=== PATIENT | male | born 1950 | race Caucasian/White ===

== ENCOUNTER 2016-06-06 16:06 | Inpatient (IN) | payer MEDICARE, MEDICAID ==
[~2016-06-06] VITALS: Ht 185.4 cm; Wt 112.7 kg
[~2016-06-06 16:06] MED LIST: AMLO5TAB2 PO; AMOX1TAB61 PO; ARIP10TA13 PO; ASPI-650 PO; CEFD300C2 PO; CELE200C PO; CIPR500T3 PO; DIABETIC MED PER MD; DIVA250T14 PO; DIVA250T4 PO; DOCU-30 PO; DOXY100T PO; FLUT1DIS3 INH; GEMF600T3 PO; LACT1CAP20 PO; LINA5TAB PO; LITH300C PO; LORA0.5T PO; LOSA50TA6 PO; NITR0.4T SL; NITR0.4T8 SL; OMEP-110 PO; ONDA-39 PO; OXYC-302 PO; OXYC1TAB7 PO; POTA99TA3 PO; SULF1TAB24 PO
[2016-06-06] MEDS: HYDROmorphone 1 MG/ML, 1ML IV ONE ×2 (19:30→19:40)
[2016-06-06] MEDS ORDERED: ONDANSETRON 2MG/ML, 2ML IVPush ONE (19:30)
[2016-06-06] MEDS ORDERED: SODIUM CHLORIDE FLUSH 10ML SYR IVF ONE (19:30)
[2016-06-06] MEDS ORDERED: ONDANSETRON 2MG/ML, 2ML ONE ×2 (19:37→23:16)
[2016-06-06] MEDS ORDERED: HYDROmorphone 1 MG/ML, 1ML ONE (19:37)
[2016-06-06 19:38] LABS: BLOOD UREA NITROGEN 28 mg/dL (7-18); HEMOGLOBIN 12.7 g/dL (13.7-18.0)
[2016-06-06] MEDS ORDERED: ACETAMINOPHEN 325 MG TABLET PO PRN ×2 (20:30→23:00)
[2016-06-06] MEDS ORDERED: LABETALOL 5MG/ML, 20ML IV PRN ×2 (20:30→23:00)
[2016-06-06] MEDS ORDERED: ONDANSETRON ODT 4 MG PO PRN (20:30)
[2016-06-06] MEDS ORDERED: DOCUSATE 100 MG CAPSULE PO PRN (20:30)
[2016-06-06] MEDS: HEPARIN 5,000 UNITS/ML, 1ML SQ SCH (20:30)
[2016-06-06] MEDS: LITHIUM CARBONATE 300 MG CAPSULE PO SCH (21:00)
[2016-06-06] MEDS: (Fluticasone/Salmeterol** (Advair 250-50 Diskus**) 1 PUFF) INH SCH (21:00)
[2016-06-06] MEDS: INSULIN ASPART 100 UNITS/ML, PEN SQ-INSULIN SCH (21:00)
[2016-06-06] MEDS: LACTULOSE 10 GM/15 ML UDC PO SCH (21:00)
[2016-06-06] MEDS: SODIUM CHLORIDE 0.9% 1,000 ML IV SCH (21:36)
[2016-06-06 21:38] VITALS: BP 146/86
[2016-06-06] MEDS: D5%-0.45% NACL 1,000 ML IV SCH (22:25)
[2016-06-06] MEDS ORDERED: ASPIRIN 325 MG TABLET PO ONE (22:30)
[2016-06-06] MEDS: FAMOTIDINE 20 MG/2 ML IV SCH (22:35)
[2016-06-06] MEDS ORDERED: EPHEDRINE 50 MG/ML, 1ML IVPush PRN (23:00)
[2016-06-06] MEDS ORDERED: ALBUTEROL SULFATE 2.5 MG/3 ML NPPB PRN (23:00)
[2016-06-06] MEDS ORDERED: PROMETHAZINE 25 MG/ML, 1ML IV PRN (23:00)
[2016-06-06] MEDS ORDERED: OXYcodone 5 MG/5 ML ORAL.SOL UDC PO PRN (23:00)
[2016-06-06] MEDS ORDERED: hydrALAzine 20 MG/ML, 1ML IV PRN (23:00)
[2016-06-06] MEDS ORDERED: ONDANSETRON 2MG/ML, 2ML IVPush PRN (23:00)
[2016-06-06] MEDS ORDERED: METOPROLOL 1 MG/ML, 5ML IV PRN (23:00)
[2016-06-06] MEDS ORDERED: CEFAZOLIN 1,000 MG ONE (23:16)
[2016-06-06] MEDS ORDERED: PROPOFOL 10 MG/ML, 20ML ONE (23:16)
[2016-06-06] MEDS ORDERED: GLYCOPYRROLATE 0.2MG/1ML ONE (23:16)
[2016-06-06] MEDS ORDERED: NEOSTIGMINE 1 MG/ML, 10ML ONE (23:16)
[2016-06-06] MEDS ORDERED: ROCURONIUM 10 MG/ML ONE (23:16)
[2016-06-06] MEDS ORDERED: FENTANYL PF 100 MCG/2ML ONE (23:38)
[2016-06-07] MEDS ORDERED: FENTANYL PF 100 MCG/2ML ONE (00:17)
[2016-06-07] MEDS ORDERED: OXYcodone 5 MG/5 ML ORAL.SOL UDC ONE (00:17)
[2016-06-07] MEDS: FENTANYL PF 100 MCG/2ML IV PRN ×2 (00:21→00:37)
[2016-06-07] MEDS ORDERED: HYDROmorphone 2 MG/ML, 1ML ONE (00:27)
[2016-06-07] MEDS: HYDROmorphone 1 MG/ML, 1ML IV PRN ×5 (00:29→06:44)
[2016-06-07] MEDS: SODIUM CHLORIDE 0.9% 1,000 ML IV SCH (01:57)
[2016-06-07 02:00] VITALS: BP 104/58
[2016-06-07] MEDS: D5%-0.45% NACL 1,000 ML IV SCH ×4 (02:31→21:10)
[2016-06-07] MEDS: ONDANSETRON 2MG/ML, 2ML IVPush PRN ×3 (03:17→14:48)
[2016-06-07] MEDS: HEPARIN 5,000 UNITS/ML, 1ML SQ SCH ×3 (05:33→21:16)
[2016-06-07] MEDS: NICOTINE 14MG/24 HR PATCH.TD24 TD SCH ×2 (05:33→21:11)
[2016-06-07 06:21] LABS: HEMOGLOBIN 11.6 g/dL (13.7-18.0)
[2016-06-07] MEDS: INSULIN ASPART 100 UNITS/ML, PEN SQ-INSULIN SCH ×4 (06:38→21:00)
[2016-06-07 06:39] LABS: ASPARTATE AMINO TRANSFERASE 10 U/L (15-37); BLOOD UREA NITROGEN 23 mg/dL (7-18)
[2016-06-07 07:50] VITALS: BP 99/69
[2016-06-07] MEDS: FAMOTIDINE 20 MG/2 ML IV SCH ×2 (08:57→21:14)
[2016-06-07] MEDS: (Fluticasone/Salmeterol** (Advair 250-50 Diskus**) 1 PUFF) INH SCH ×2 (09:00→21:00)
[2016-06-07] MEDS: LACTULOSE 10 GM/15 ML UDC PO SCH ×3 (10:17→21:33)
[2016-06-07] MEDS: ASPIRIN 325 MG TABLET EC PO SCH (10:18)
[2016-06-07] MEDS: SENNA/DOCUSATE TABLET PO SCH (10:18)
[2016-06-07] MEDS: DIVALPROEX 250 MG TABLET.DR PO SCH (10:18)
[2016-06-07] MEDS: GEMFIBROZIL 600 MG TABLET PO SCH (10:18)
[2016-06-07] MEDS: LITHIUM CARBONATE 300 MG CAPSULE PO SCH ×2 (10:19→21:16)
[2016-06-07] MEDS: OXYcodone IR 5MG TABLET PO PRN ×4 (10:19→23:44)
[2016-06-07] MEDS: LOSARTAN 50MG TABLET PO SCH (10:22)
[2016-06-07 13:17] VITALS: BP 121/79
[2016-06-07 19:36] VITALS: BP 118/67
[2016-06-08] MEDS: D5%-0.45% NACL 1,000 ML IV SCH ×2 (03:01→10:36)
[2016-06-08] MEDS: HEPARIN 5,000 UNITS/ML, 1ML SQ SCH ×3 (03:49→21:20)
[2016-06-08] MEDS: OXYcodone IR 5MG TABLET PO PRN ×4 (03:50→19:43)
[2016-06-08 04:10] VITALS: BP 124/75
[2016-06-08 05:03] LABS: HEMOGLOBIN 10.8 g/dL (13.7-18.0)
[2016-06-08] MEDS: INSULIN ASPART 100 UNITS/ML, PEN SQ-INSULIN SCH ×4 (06:27→21:00)
[2016-06-08] MEDS: HYDROmorphone 1 MG/ML, 1ML IV PRN (06:35)
[2016-06-08 07:51] VITALS: BP 111/61
[2016-06-08] MEDS: (Fluticasone/Salmeterol** (Advair 250-50 Diskus**) 1 PUFF) INH SCH ×2 (08:59→21:00)
[2016-06-08] MEDS: DIVALPROEX 250 MG TABLET.DR PO SCH (09:00)
[2016-06-08] MEDS: FAMOTIDINE 20 MG/2 ML IV SCH ×2 (09:00→21:20)
[2016-06-08] MEDS: ASPIRIN 325 MG TABLET EC PO SCH (09:00)
[2016-06-08] MEDS: SENNA/DOCUSATE TABLET PO SCH (09:01)
[2016-06-08] MEDS: LITHIUM CARBONATE 300 MG CAPSULE PO SCH ×2 (09:01→21:20)
[2016-06-08] MEDS: LACTULOSE 10 GM/15 ML UDC PO SCH ×2 (09:01→21:20)
[2016-06-08] MEDS: LOSARTAN 50MG TABLET PO SCH (09:01)
[2016-06-08] MEDS: GEMFIBROZIL 600 MG TABLET PO SCH (09:02)
[2016-06-08 14:51] VITALS: BP 124/77
[2016-06-08 19:46] VITALS: BP 125/80
[2016-06-08 19:48] VITALS: BP 97/66
[2016-06-08] MEDS: NICOTINE 14MG/24 HR PATCH.TD24 TD SCH (21:20)
[2016-06-09 02:38] VITALS: BP 123/62
[2016-06-09] MEDS: OXYcodone IR 5MG TABLET PO PRN ×2 (04:54→20:27)
[2016-06-09] MEDS: HEPARIN 5,000 UNITS/ML, 1ML SQ SCH ×3 (04:54→20:26)
[2016-06-09] MEDS: INSULIN ASPART 100 UNITS/ML, PEN SQ-INSULIN SCH ×4 (07:00→20:27)
[2016-06-09 07:10] VITALS: BP 135/67
[2016-06-09] MEDS: GEMFIBROZIL 600 MG TABLET PO SCH (07:49)
[2016-06-09] MEDS: SENNA/DOCUSATE TABLET PO SCH (07:49)
[2016-06-09] MEDS: LITHIUM CARBONATE 300 MG CAPSULE PO SCH ×2 (07:49→20:27)
[2016-06-09] MEDS: LOSARTAN 50MG TABLET PO SCH (07:49)
[2016-06-09] MEDS: DIVALPROEX 250 MG TABLET.DR PO SCH (07:49)
[2016-06-09] MEDS: ASPIRIN 325 MG TABLET EC PO SCH (07:49)
[2016-06-09] MEDS: (Fluticasone/Salmeterol** (Advair 250-50 Diskus**) 1 PUFF) INH SCH ×2 (07:50→20:26)
[2016-06-09] MEDS: LACTULOSE 10 GM/15 ML UDC PO SCH ×2 (07:50→20:27)
[2016-06-09] MEDS: FAMOTIDINE 20 MG/2 ML IV SCH ×2 (07:50→20:26)
[2016-06-09 14:25] VITALS: BP 126/67
[2016-06-09 20:00] VITALS: BP 125/65
[2016-06-09] MEDS: NICOTINE 14MG/24 HR PATCH.TD24 TD SCH (20:26)
[2016-06-10 02:44] VITALS: BP 139/77
[2016-06-10] MEDS: HEPARIN 5,000 UNITS/ML, 1ML SQ SCH ×2 (04:26→12:33)
[2016-06-10] MEDS: OXYcodone IR 5MG TABLET PO PRN ×3 (04:28→12:39)
[2016-06-10 05:55] LABS: HEMOGLOBIN 11.3 g/dL (13.7-18.0)
[2016-06-10 06:20] LABS: BLOOD UREA NITROGEN 20 mg/dL (7-18)
[2016-06-10] MEDS: INSULIN ASPART 100 UNITS/ML, PEN SQ-INSULIN SCH ×2 (07:00→12:34)
[2016-06-10 07:45] VITALS: BP 118/74
[2016-06-10] MEDS: LOSARTAN 50MG TABLET PO SCH (08:59)
[2016-06-10] MEDS: DIVALPROEX 250 MG TABLET.DR PO SCH (09:00)
[2016-06-10] MEDS: GEMFIBROZIL 600 MG TABLET PO SCH (09:00)
[2016-06-10] MEDS: (Fluticasone/Salmeterol** (Advair 250-50 Diskus**) 1 PUFF) INH SCH (09:00)
[2016-06-10] MEDS: LACTULOSE 10 GM/15 ML UDC PO SCH (09:00)
[2016-06-10] MEDS: ASPIRIN 325 MG TABLET EC PO SCH (09:00)
[2016-06-10] MEDS: LITHIUM CARBONATE 300 MG CAPSULE PO SCH (09:00)
[2016-06-10] MEDS ORDERED: FAMOTIDINE 20 MG TABLET PO SCH (09:00)
[2016-06-10] MEDS: SENNA/DOCUSATE TABLET PO SCH (09:01)
[2016-06-10 13:27] VITALS: BP 102/58
[2016-06-10] MEDS ORDERED: ENOX40SY4 SQ (14:34)
[2016-06-10] MEDS ORDERED: OXYC5TAB3 PO (14:34)
[2016-06-10] MEDS ORDERED: DOCU-30 PO (14:34)
== END 2016-06-10 16:50 | disposition home or self-care (01) | DRG 480 ==
LOC: ED 19:20 → 4NOR 19:21 → ED 20:52 → DCLOUNGE 06-10 16:07
PROVIDERS: ADMIT Internal Medicine; ATTEND Internal Medicine
PROC: 0QS634Z Reposition Right Upper Femur with Internal Fixation Device, Percutaneous Approach (ICD-10-PCS; principal; 2016-06-06 23:00)
DX: S72.001A Fracture of unspecified part of neck of right femur, initial encounter for closed fracture (principal); N17.0 Acute kidney failure with tubular necrosis; D64.9 Anemia, unspecified; D72.828 Other elevated white blood cell count; E11.9 Type 2 diabetes mellitus without complications; E78.00 Pure hypercholesterolemia, unspecified; E78.5 Hyperlipidemia, unspecified; E86.0 Dehydration; F17.210 Nicotine dependence, cigarettes, uncomplicated; F31.9 Bipolar disorder, unspecified; I10 Essential (primary) hypertension; I25.10 Atherosclerotic heart disease of native coronary artery without angina pectoris; W18.39XA Other fall on same level, initial encounter; I25.2 Old myocardial infarction; Z93.3 Colostomy status; Z79.82 Long term (current) use of aspirin; Z83.3 Family history of diabetes mellitus; Z95.0 Presence of cardiac pacemaker; Z90.49 Acquired absence of other specified parts of digestive tract; Z89.411 Acquired absence of right great toe; Z88.5 Allergy status to narcotic agent; Z88.8 Allergy status to other drugs, medicaments and biological substances; Y93.89 Activity, other specified; Y92.098 Other place in other non-institutional residence as the place of occurrence of the external cause
CPT/HCPCS: 36415; 71010; 76001; 80048; 80053; 80178; 82040; 82962; 85025; 93005; 96374; C1713; J0690; J1170; J1644; J1815; J2405; J2704; J2710; J3010; J3490; J7030; S0028

== ENCOUNTER 2016-07-01 18:55 | Inpatient (IN) | payer MEDICARE, MEDICAID ==
[~2016-07-01] VITALS: Ht 185.4 cm; Wt 108.6 kg
[~2016-07-01 18:55] MED LIST changes: +ENOX40SY4 SQ; +OXYC5TAB3 PO
[2016-07-01] MEDS ORDERED: BUSP5TAB2 PO (19:13)
[2016-07-01] MEDS ORDERED: SODIUM CHLORIDE 0.9% 1,000ML IVBOLUS ONE (20:00)
[2016-07-01] MEDS ORDERED: SODIUM CHLORIDE FLUSH 10ML SYR IVF ONE (20:00)
[2016-07-01 20:02] LABS: BLOOD UREA NITROGEN 15 mg/dL (7-18)
[2016-07-01 20:03] LABS: ASPARTATE AMINO TRANSFERASE 9 U/L (15-37)
[2016-07-01 20:10] LABS: IS PT STATUS REG ER OR PRE ER? YES
[2016-07-01] MEDS ORDERED: TRAZODONE 50MG TABLET PO PRN (22:00)
[2016-07-01] MEDS ORDERED: LABETALOL 5MG/ML, 20ML IV PRN (22:00)
[2016-07-01] MEDS ORDERED: BISACODYL 10 MG SUPP PR PRN (22:00)
[2016-07-01] MEDS ORDERED: POLYETHYLENE GLYCOL 17 GM PACKET PO PRN (22:00)
[2016-07-01] MEDS ORDERED: ACETAMINOPHEN 325 MG TABLET PO PRN (22:00)
[2016-07-01] MEDS ORDERED: DOCUSATE 100 MG CAPSULE PO PRN (22:00)
[2016-07-01 22:51] VITALS: BP 132/82
[2016-07-01] MEDS: SODIUM CHLORIDE 0.9% 1,000 ML IV SCH (23:12)
[2016-07-01] MEDS: ENOXAPARIN 40 MG/0.4 ML SQ SCH (23:22)
[2016-07-02] VITALS (9 sets, daily range): BP systolic 129–153; BP diastolic 72–83
[2016-07-02] MEDS ORDERED: GLUCAGON 1 MG IM PRN (04:30)
[2016-07-02] MEDS ORDERED: DEXTROSE 4 GM TAB.CHEW PO PRN (04:30)
[2016-07-02] MEDS ORDERED: DEXTROSE 50%, 50ML SYRINGE IVPush PRN (04:30)
[2016-07-02] MEDS: SODIUM CHLORIDE 0.9% 1,000 ML IV SCH ×3 (06:04→21:48)
[2016-07-02 06:16] LABS: BLOOD UREA NITROGEN 16 mg/dL (7-18)
[2016-07-02 06:19] LABS: ASPARTATE AMINO TRANSFERASE 7 U/L (15-37)
[2016-07-02] MEDS: NICOTINE 7 MG/24 HR PATCH.TD24 TD SCH (06:19)
[2016-07-02] MEDS: INSULIN ASPART 100 UNITS/ML, PEN SQ-INSULIN SCH ×4 (07:00→21:00)
[2016-07-02] MEDS: SODIUM CHLORIDE FLUSH 10ML SYR IVF SCH ×2 (09:00→21:48)
[2016-07-02] MEDS: FLUTICASONE/VILANTEROL 100-25MCG/INH INH SCH (09:00)
[2016-07-02] MEDS: GEMFIBROZIL 600 MG TABLET PO SCH (09:35)
[2016-07-02] MEDS: DIVALPROEX 250 MG TABLET.DR PO SCH (09:35)
[2016-07-02] MEDS: BUSPIRONE 5 MG TABLET PO SCH ×2 (09:35→21:48)
[2016-07-02] MEDS: CEFTRIAXONE PMX 1GM/50ML 50 ML IV SCH ×2 (14:30→18:14)
[2016-07-02] MEDS: POTASSIUM CHLORIDE 20 MEQ TAB.ER.PRT PO SCH (18:14)
[2016-07-02] MEDS: FAMOTIDINE 20 MG TABLET PO SCH (21:49)
[2016-07-02] MEDS: ENOXAPARIN 40 MG/0.4 ML SQ SCH (21:49)
[2016-07-02 22:10] LABS: OCCBLD OBC PASS
[2016-07-03 02:28] VITALS: BP 136/73
[2016-07-03] MEDS: SODIUM CHLORIDE 0.9% 1,000 ML IV SCH (04:08)
[2016-07-03] MEDS: NICOTINE 7 MG/24 HR PATCH.TD24 TD SCH (04:09)
[2016-07-03 05:59] LABS: BLOOD UREA NITROGEN 14 mg/dL (7-18)
[2016-07-03 06:51] VITALS: BP 170/91
[2016-07-03] MEDS: INSULIN ASPART 100 UNITS/ML, PEN SQ-INSULIN SCH ×2 (07:00→11:00)
[2016-07-03] MEDS: DIVALPROEX 250 MG TABLET.DR PO SCH (08:00)
[2016-07-03] MEDS: POTASSIUM CHLORIDE 20 MEQ TAB.ER.PRT PO SCH (08:00)
[2016-07-03] MEDS: FLUTICASONE/VILANTEROL 100-25MCG/INH INH SCH (08:00)
[2016-07-03] MEDS: BUSPIRONE 5 MG TABLET PO SCH (08:00)
[2016-07-03] MEDS: FAMOTIDINE 20 MG TABLET PO SCH (08:01)
[2016-07-03] MEDS: GEMFIBROZIL 600 MG TABLET PO SCH (08:01)
[2016-07-03] MEDS: SODIUM CHLORIDE FLUSH 10ML SYR IVF SCH (09:00)
[2016-07-03] MEDS ORDERED: PANTOPRAZOLE 20MG TABLET PO SCH (09:30)
[2016-07-03] MEDS ORDERED: Pantoprazole Sodium PO (10:41)
[2016-07-03] MEDS ORDERED: LACT1CAP24 PO (10:41)
[2016-07-03] MEDS ORDERED: LOSA50TA6 PO (10:45)
[2016-07-03] MEDS ORDERED: CEFD300C2 PO (10:45)
[2016-07-03] MEDS ORDERED: CEFDINIR 300 MG CAPSULE PO SCH (21:00)
== END 2016-07-03 14:25 | disposition home or self-care (01) | DRG 74 ==
LOC: ED 21:44 → EDIP 23:01 → 5SO 23:17 → DCLOUNGE 07-03 13:55
PROVIDERS: ADMIT Internal Medicine; ATTEND Internal Medicine
PROC: 4B02XSZ Measurement of Cardiac Pacemaker, External Approach (ICD-10-PCS; principal; 2016-07-02)
DX: G90.8 Other disorders of autonomic nervous system (principal); E44.1 Mild protein-calorie malnutrition; I42.9 Cardiomyopathy, unspecified; R71.0 Precipitous drop in hematocrit; N39.0 Urinary tract infection, site not specified; R55 Syncope and collapse; D64.9 Anemia, unspecified; I25.10 Atherosclerotic heart disease of native coronary artery without angina pectoris; I25.2 Old myocardial infarction; E78.5 Hyperlipidemia, unspecified; E11.9 Type 2 diabetes mellitus without complications; F31.9 Bipolar disorder, unspecified; I10 Essential (primary) hypertension; D72.829 Elevated white blood cell count, unspecified; Z68.31 Body mass index [BMI] 31.0-31.9, adult; E87.6 Hypokalemia; F17.200 Nicotine dependence, unspecified, uncomplicated; G89.29 Other chronic pain; J32.0 Chronic maxillary sinusitis; J44.9 Chronic obstructive pulmonary disease, unspecified; M25.78 Osteophyte, vertebrae; M48.02 Spinal stenosis, cervical region; M54.5 Low back pain; M50.30 Other cervical disc degeneration, unspecified cervical region; M51.36 Other intervertebral disc degeneration, lumbar region; Z83.3 Family history of diabetes mellitus; Z93.3 Colostomy status; Z95.0 Presence of cardiac pacemaker; Z90.49 Acquired absence of other specified parts of digestive tract; Z89.411 Acquired absence of right great toe; Z88.5 Allergy status to narcotic agent; Z88.8 Allergy status to other drugs, medicaments and biological substances
CPT/HCPCS: 36415; 70450; 71010; 72125; 74176; 80048; 80053; 81001; 82272; 82962; 83690; 83735; 83880; 84100; 84443; 84484; 85025; 85610; 85730; 87077; 87086; 87186; 93005; 96360; 96361; J0696; J1650; J7030

== ENCOUNTER 2016-07-14 21:59 | Emergency (ER) | payer MEDICARE, MEDICAID ==
[~2016-07-14] VITALS: Ht 185.4 cm; Wt 103.0 kg
[~2016-07-14 21:59] MED LIST changes: +BUSP5TAB2 PO; -CEFD300C2 PO; +CEFD300C37 PO; +LACT1CAP24 PO; +Pantoprazole Sodium PO
[2016-07-14] MEDS ORDERED: OMEP-110 PO (22:29)
[2016-07-14] MEDS ORDERED: LITH300T3 PO (22:29)
[2016-07-14] MEDS ORDERED: AMLO5TAB2 PO (22:29)
[2016-07-14] MEDS ORDERED: SODIUM CHLORIDE 0.9% 1,000ML IVBOLUS ONE (22:30)
[2016-07-14 23:02] LABS: BLOOD UREA NITROGEN 20 mg/dL (7-18)
[2016-07-14 23:07] LABS: ASPARTATE AMINO TRANSFERASE 13 U/L (15-37)
[2016-07-14 23:16] LABS: IS PT STATUS REG ER OR PRE ER? YES
[2016-07-15 01:24] VITALS: BP 111/69
== END 2016-07-15 01:25 | disposition home or self-care (01) ==
LOC: ED 23:58
DX: N30.00 Acute cystitis without hematuria (principal); R42 Dizziness and giddiness; R55 Syncope and collapse; E11.9 Type 2 diabetes mellitus without complications; E78.00 Pure hypercholesterolemia, unspecified; I10 Essential (primary) hypertension; I25.10 Atherosclerotic heart disease of native coronary artery without angina pectoris; I25.2 Old myocardial infarction; Z90.49 Acquired absence of other specified parts of digestive tract; Z93.3 Colostomy status; Z88.5 Allergy status to narcotic agent; Z88.6 Allergy status to analgesic agent; F17.200 Nicotine dependence, unspecified, uncomplicated
CPT/HCPCS: 36415; 71010; 80053; 81001; 84484; 85025; 87086; 93005; 96360; 96361; 99285; J7030; 87077

== ENCOUNTER 2016-07-19 14:28 | Emergency (ER) | payer MEDICARE, MEDICAID ==
[~2016-07-19] VITALS: Ht 185.4 cm; Wt 106.8 kg
[~2016-07-19 14:28] MED LIST changes: +LITH300T3 PO
[2016-07-19] MEDS ORDERED: SODIUM CHLORIDE FLUSH 10ML SYR IVF ONE (16:00)
[2016-07-19] MEDS ORDERED: NITR50CA PO (16:09)
[2016-07-19 16:36] LABS: BLOOD UREA NITROGEN 17 mg/dL (7-18)
[2016-07-19 16:42] LABS: ASPARTATE AMINO TRANSFERASE 18 U/L (15-37); IS PT STATUS REG ER OR PRE ER? YES
[2016-07-19 20:43] VITALS: BP 127/77
== END 2016-07-19 20:45 | disposition home or self-care (01) ==
LOC: ED 16:05
DX: S70.01XA Contusion of right hip, initial encounter (principal); S70.11XA Contusion of right thigh, initial encounter; I10 Essential (primary) hypertension; R07.9 Chest pain, unspecified; R55 Syncope and collapse; I25.2 Old myocardial infarction; I25.10 Atherosclerotic heart disease of native coronary artery without angina pectoris; F17.200 Nicotine dependence, unspecified, uncomplicated; E78.00 Pure hypercholesterolemia, unspecified; F31.9 Bipolar disorder, unspecified; E11.9 Type 2 diabetes mellitus without complications; W07.XXXA Fall from chair, initial encounter; Y93.89 Activity, other specified; Y92.098 Other place in other non-institutional residence as the place of occurrence of the external cause; Y99.8 Other external cause status; Z95.0 Presence of cardiac pacemaker; Z88.5 Allergy status to narcotic agent; Z90.49 Acquired absence of other specified parts of digestive tract; Z91.040 Latex allergy status; Z88.6 Allergy status to analgesic agent
CPT/HCPCS: 36415; 71010; 72190; 80053; 83880; 84484; 85025; 93005

== ENCOUNTER → 2016-07-28 | Outpatient (CLI) | payer MEDICARE, MEDICAID ==
[~2016-07-28] MED LIST changes: +NITR50CA PO
[2016-07-28 10:22] LABS: ASPARTATE AMINO TRANSFERASE 11 U/L (15-37); BLOOD UREA NITROGEN 17 mg/dL (7-18)
== END | disposition home or self-care (01) ==
LOC: LAB 09:53
PROVIDERS: ATTEND Nurse Practitioner
DX: E11.40 Type 2 diabetes mellitus with diabetic neuropathy, unspecified (principal); E78.5 Hyperlipidemia, unspecified; I10 Essential (primary) hypertension
CPT/HCPCS: 36415; 80053; 80061; 80178; 83036

== ENCOUNTER → 2016-08-01 | Outpatient (CLI) | payer MEDICARE, MEDICAID | END | disposition home or self-care (01) | LOC: CFH 09:18 | PROVIDERS: ATTEND Urology | DX: Z43.6 Encounter for attention to other artificial openings of urinary tract (principal); N31.9 Neuromuscular dysfunction of bladder, unspecified; E27.9 Disorder of adrenal gland, unspecified; N18.2 Chronic kidney disease, stage 2 (mild); N28.1 Cyst of kidney, acquired; Z90.6 Acquired absence of other parts of urinary tract | CPT/HCPCS: 76770 ==

== ENCOUNTER → 2016-08-05 | Outpatient (CLI) | payer MEDICARE, MEDICAID ==
[2016-08-05 12:18] LABS: BLOOD UREA NITROGEN 12 mg/dL (7-18)
[2016-08-05 12:19] LABS: ASPARTATE AMINO TRANSFERASE 12 U/L (15-37)
== END | disposition home or self-care (01) ==
LOC: LAB 11:30
PROVIDERS: ATTEND Urology
DX: F31.60 Bipolar disorder, current episode mixed, unspecified (principal); N18.2 Chronic kidney disease, stage 2 (mild)
CPT/HCPCS: 36415; 80053; 80164; 80178; 85025

== ENCOUNTER 2016-08-28 13:23 | Inpatient (IN) | payer MEDICARE, MEDICAID ==
[~2016-08-28] VITALS: Ht 185.4 cm; Wt 107.2 kg
[2016-08-28] MEDS ORDERED: SODIUM CHLORIDE 0.9% 1,000ML IVBOLUS ONE (14:30)
[2016-08-28] MEDS ORDERED: SODIUM CHLORIDE FLUSH 10ML SYR IVF ONE (14:30)
[2016-08-28] MEDS ORDERED: ONDANSETRON 2MG/ML, 2ML IVPush ONE (14:30)
[2016-08-28 14:59] LABS: BLOOD UREA NITROGEN 11 mg/dL (7-18)
[2016-08-28 16:05] LABS: PATH.CAST-FLAG NOT PRESENT; SPERM-FLAG NOT PRESENT; SRC-FLAG NOT PRESENT; XTAL-FLAG NOT PRESENT; YLC-FLAG NOT PRESENT
[2016-08-28] MEDS ORDERED: METRONIDAZOLE PMX 500MG/100ML 100 ML IV ONE (16:30)
[2016-08-28] MEDS ORDERED: ONDANSETRON 2MG/ML, 2ML ONE ×2 (17:52→18:58)
[2016-08-28] MEDS ORDERED: METRONIDAZOLE PMX 500MG/100ML 100 ML ONE (17:53)
[2016-08-28] MEDS: METRONIDAZOLE PMX 500MG/100ML 100 ML IV SCH ×2 (19:20→19:30)
[2016-08-28] MEDS ORDERED: DEXTROSE 4 GM TAB.CHEW PO PRN (19:30)
[2016-08-28] MEDS ORDERED: DEXTROSE 50%, 50ML SYRINGE IVPush PRN (19:30)
[2016-08-28] MEDS ORDERED: GLUCAGON 1 MG IM PRN (19:30)
[2016-08-28] MEDS ORDERED: PIPERACILLIN/TAZO/PMX 3.375GM 50 ML ONE (19:49)
[2016-08-28] MEDS ORDERED: POTASSIUM CHLORIDE 20 MEQ TAB.ER.PRT ONE (19:49)
[2016-08-28] MEDS: POTASSIUM CHLORIDE 20 MEQ TAB.ER.PRT PO SCH (19:59)
[2016-08-28] MEDS: PIPERACILLIN/TAZO 3.375 GM in SODIUM CHLORIDE 0.9% 50 ML IV SCH (19:59)
[2016-08-28] MEDS ORDERED: ACETAMINOPHEN 325 MG TABLET PO PRN (20:00)
[2016-08-28] MEDS ORDERED: PROMETHAZINE 25 MG/ML, 1ML IM PRN (20:00)
[2016-08-28] MEDS ORDERED: ONDANSETRON 2MG/ML, 2ML IVPush PRN (20:00)
[2016-08-28] MEDS: SODIUM CHLORIDE 0.9% 1,000 ML IV SCH (20:00)
[2016-08-28] MEDS ORDERED: ONDA4TAB7 PO (20:04)
[2016-08-28] MEDS ORDERED: NICOTINE 21 MG/24 HR PATCH.TD24 ONE (20:28)
[2016-08-28] MEDS ORDERED: ENOXAPARIN 40 MG/0.4 ML ONE (20:29)
[2016-08-28] MEDS: SODIUM CHLORIDE FLUSH 10ML SYR IVF SCH (21:00)
[2016-08-28] MEDS: FLUTICASONE/VILANTEROL 100-25MCG/INH INH SCH (21:00)
[2016-08-28] MEDS: LACTOBACILLUS CHEW TABLET PO SCH (21:00)
[2016-08-28] MEDS: INSULIN ASPART 100 UNITS/ML, PEN SQ-INSULIN SCH (21:00)
[2016-08-28] MEDS ORDERED: ACETAMINOPHEN 325 MG TABLET ONE (21:04)
[2016-08-28 21:27] LABS: IS PT STATUS REG ER OR PRE ER? YES
[2016-08-28] MEDS: VANCOMYCIN 50 MG/ML ORAL SUSP PO SCH (21:28)
[2016-08-28] MEDS: NICOTINE 21 MG/24 HR PATCH.TD24 TD SCH (21:28)
[2016-08-28] MEDS: ENOXAPARIN 40 MG/0.4 ML SQ SCH (21:28)
[2016-08-28] MEDS: THIAMINE 200 MG in SODIUM CHLORIDE 0.9% 50 ML IV SCH (21:28)
[2016-08-29] MEDS ORDERED: IPRATROPIUM 0.5 MG/2.5 ML INHA NPPB PRN
[2016-08-29] MEDS: VANCOMYCIN 50 MG/ML ORAL SUSP PO SCH ×4 (01:30→23:22)
[2016-08-29] MEDS: PIPERACILLIN/TAZO 3.375 GM in SODIUM CHLORIDE 0.9% 50 ML IV SCH (01:30)
[2016-08-29] MEDS ORDERED: PIPERACILLIN/TAZO/PMX 3.375GM 50 ML ONE (02:14)
[2016-08-29] MEDS: METRONIDAZOLE PMX 500MG/100ML 100 ML IV SCH ×3 (03:30→21:13)
[2016-08-29] MEDS: SODIUM CHLORIDE 0.9% 1,000 ML IV SCH ×3 (03:41→23:27)
[2016-08-29] MEDS ORDERED: METRONIDAZOLE PMX 500MG/100ML 100 ML ONE (03:46)
[2016-08-29 04:51] VITALS: BP 129/77
[2016-08-29 06:37] LABS: BLOOD UREA NITROGEN 11 mg/dL (7-18)
[2016-08-29 06:39] LABS: ASPARTATE AMINO TRANSFERASE 11 U/L (15-37); IS PT STATUS REG ER OR PRE ER? NO
[2016-08-29] MEDS: INSULIN ASPART 100 UNITS/ML, PEN SQ-INSULIN SCH ×4 (07:00→21:00)
[2016-08-29 07:47] VITALS: BP 131/79
[2016-08-29] MEDS: SODIUM CHLORIDE FLUSH 10ML SYR IVF SCH ×2 (09:00→21:13)
[2016-08-29] MEDS: PIPERACILLIN/TAZO/PMX 3.375GM 50 ML IV SCH ×3 (09:41→23:23)
[2016-08-29] MEDS: FLUTICASONE/VILANTEROL 100-25MCG/INH INH SCH (09:45)
[2016-08-29] MEDS: AMLODIPINE 5 MG TABLET PO SCH (09:46)
[2016-08-29] MEDS: LACTOBACILLUS CHEW TABLET PO SCH ×3 (09:46→21:13)
[2016-08-29] MEDS: POTASSIUM CHLORIDE 20 MEQ TAB.ER.PRT PO SCH ×2 (09:46→13:46)
[2016-08-29] MEDS: GEMFIBROZIL 600 MG TABLET PO SCH (09:46)
[2016-08-29] MEDS: THIAMINE 200 MG in SODIUM CHLORIDE 0.9% 50 ML IV SCH (12:09)
[2016-08-29 14:59] VITALS: BP 147/80
[2016-08-29 20:20] VITALS: BP 161/86
[2016-08-29] MEDS: NICOTINE 21 MG/24 HR PATCH.TD24 TD SCH (21:13)
[2016-08-29] MEDS: ENOXAPARIN 40 MG/0.4 ML SQ SCH (21:13)
[2016-08-30 01:30] VITALS: BP 138/77
[2016-08-30] MEDS: PIPERACILLIN/TAZO/PMX 3.375GM 50 ML IV SCH (04:48)
[2016-08-30] MEDS: VANCOMYCIN 50 MG/ML ORAL SUSP PO SCH ×3 (05:46→19:12)
[2016-08-30] MEDS: METRONIDAZOLE PMX 500MG/100ML 100 ML IV SCH (05:46)
[2016-08-30 05:53] LABS: BLOOD UREA NITROGEN 7 mg/dL (7-18)
[2016-08-30] MEDS: INSULIN ASPART 100 UNITS/ML, PEN SQ-INSULIN SCH ×4 (07:00→21:00)
[2016-08-30 07:43] VITALS: BP 115/90
[2016-08-30] MEDS: FLUTICASONE/VILANTEROL 100-25MCG/INH INH SCH (09:00)
[2016-08-30 09:30] VITALS: BP 155/86
[2016-08-30] MEDS: LACTOBACILLUS CHEW TABLET PO SCH ×3 (09:31→21:16)
[2016-08-30] MEDS: AMLODIPINE 5 MG TABLET PO SCH (09:31)
[2016-08-30] MEDS: GEMFIBROZIL 600 MG TABLET PO SCH (09:31)
[2016-08-30] MEDS: THIAMINE 200 MG in SODIUM CHLORIDE 0.9% 50 ML IV SCH (09:32)
[2016-08-30] MEDS: SODIUM CHLORIDE FLUSH 10ML SYR IVF SCH ×2 (09:34→21:17)
[2016-08-30 13:38] LABS: PATH.CAST-FLAG NOT PRESENT; SPERM-FLAG NOT PRESENT; SRC-FLAG NOT PRESENT; XTAL-FLAG NOT PRESENT; YLC-FLAG NOT PRESENT
[2016-08-30 14:52] VITALS: BP 155/84
[2016-08-30 19:37] VITALS: BP_SYST 153; BP_SYST 163; BP_DIAS 86; BP_DIAS 89
[2016-08-30] MEDS: NICOTINE 21 MG/24 HR PATCH.TD24 TD SCH (21:16)
[2016-08-30] MEDS: ENOXAPARIN 40 MG/0.4 ML SQ SCH (21:17)
[2016-08-31] MEDS: VANCOMYCIN 50 MG/ML ORAL SUSP PO SCH ×3 (00:57→13:57)
[2016-08-31 01:53] VITALS: BP 142/82
[2016-08-31 06:13] LABS: BLOOD UREA NITROGEN 9 mg/dL (7-18)
[2016-08-31] MEDS: INSULIN ASPART 100 UNITS/ML, PEN SQ-INSULIN SCH ×2 (07:00→11:00)
[2016-08-31] MEDS: AMLODIPINE 5 MG TABLET PO SCH (08:05)
[2016-08-31] MEDS: LACTOBACILLUS CHEW TABLET PO SCH (08:05)
[2016-08-31] MEDS: GEMFIBROZIL 600 MG TABLET PO SCH (08:05)
[2016-08-31 08:06] VITALS: BP 141/67
[2016-08-31] MEDS: FLUTICASONE/VILANTEROL 100-25MCG/INH INH SCH (08:06)
[2016-08-31] MEDS: SODIUM CHLORIDE FLUSH 10ML SYR IVF SCH (08:06)
[2016-08-31] MEDS ORDERED: MULTIVITAMIN 1 TABLET PO SCH (10:30)
[2016-08-31] MEDS ORDERED: MULT1TAB60 PO (12:45)
[2016-08-31] MEDS ORDERED: VANC1VIA3 PO (12:45)
[2016-08-31] MEDS ORDERED: FLUT1AER INH (12:45)
[2016-08-31] MEDS ORDERED: ACID1TAB7 PO (12:45)
[2016-08-31] MEDS ORDERED: AMLO5TAB2 PO (12:45)
[2016-08-31 14:00] VITALS: BP 151/88
== END 2016-08-31 14:45 | disposition home or self-care (01) | DRG 371 ==
LOC: ED 15:50 → EDIP 18:04 → 4WST 08-29 05:15
PROVIDERS: ADMIT Internal Medicine; ATTEND Internal Medicine
PROC: 0T9B70Z Drainage of Bladder with Drainage Device, Via Natural or Artificial Opening (ICD-10-PCS; principal; 2016-08-30)
DX: A04.7 Enterocolitis due to Clostridium difficile (principal); E43 Unspecified severe protein-calorie malnutrition; N39.0 Urinary tract infection, site not specified; K94.12 Enterostomy infection; E78.5 Hyperlipidemia, unspecified; G47.33 Obstructive sleep apnea (adult) (pediatric); R55 Syncope and collapse; E11.40 Type 2 diabetes mellitus with diabetic neuropathy, unspecified; E78.00 Pure hypercholesterolemia, unspecified; E87.6 Hypokalemia; F17.210 Nicotine dependence, cigarettes, uncomplicated; F31.9 Bipolar disorder, unspecified; G89.29 Other chronic pain; I10 Essential (primary) hypertension; J44.9 Chronic obstructive pulmonary disease, unspecified; M54.9 Dorsalgia, unspecified; G90.8 Other disorders of autonomic nervous system; W05.0XXA Fall from non-moving wheelchair, initial encounter; I25.10 Atherosclerotic heart disease of native coronary artery without angina pectoris; Z68.31 Body mass index [BMI] 31.0-31.9, adult; I25.2 Old myocardial infarction; Z59.9 Problem related to housing and economic circumstances, unspecified; Z87.440 Personal history of urinary (tract) infections; Z89.411 Acquired absence of right great toe; Z91.19 Patient's noncompliance with other medical treatment and regimen; Z90.89 Acquired absence of other organs; Z89.429 Acquired absence of other toe(s), unspecified side; Z91.81 History of falling; Z93.6 Other artificial openings of urinary tract status; Z95.0 Presence of cardiac pacemaker; Z99.3 Dependence on wheelchair; Z88.5 Allergy status to narcotic agent; Z91.040 Latex allergy status; Y93.89 Activity, other specified; Y92.521 Bus station as the place of occurrence of the external cause; Y99.8 Other external cause status; Z22.338 Carrier of other streptococcus
CPT/HCPCS: 36415; 70450; 80048; 80053; 81001; 82040; 82962; 83735; 84100; 84484; 85025; 87086; 87324; 87493; 89055; 93005; 93880; 99285; J1650; J1815; J2405; J2543; J3370; J3411; J7030

== ENCOUNTER 2016-10-19 01:06 | Emergency (ER) | payer MEDICARE, MEDICAID ==
[~2016-10-19] VITALS: Ht 185.4 cm; Wt 103.0 kg
[~2016-10-19 01:06] MED LIST changes: +ACID1TAB7 PO; +FLUT1AER INH; +MULT1TAB60 PO; +ONDA4TAB7 PO; +VANC1VIA3 PO
[2016-10-19] MEDS ORDERED: HYDROcodone/APAP 5/325 TABLET PO ONE (01:30)
[2016-10-19] MEDS ORDERED: HYDROcodone/APAP 5/325 TABLET ONE (01:45)
[2016-10-19 02:27] VITALS: BP 112/76
== END 2016-10-19 01:41 | disposition home or self-care (01) ==
LOC: ED 01:35
DX: S16.1XXA Strain of muscle, fascia and tendon at neck level, initial encounter (principal); S09.90XA Unspecified injury of head, initial encounter; E11.9 Type 2 diabetes mellitus without complications; E78.00 Pure hypercholesterolemia, unspecified; I25.2 Old myocardial infarction; W19.XXXA Unspecified fall, initial encounter; Y93.89 Activity, other specified; Y92.59 Other trade areas as the place of occurrence of the external cause; Y99.9 Unspecified external cause status
CPT/HCPCS: 70450; 72125; 99284

== ENCOUNTER 2016-10-30 16:25 | Emergency (ER) | payer MEDICARE, MEDICAID ==
[~2016-10-30] VITALS: Ht 185.4 cm; Wt 99.5 kg
[2016-10-30 16:27] VITALS: BP 130/87
[2016-10-30] MEDS ORDERED: LITHIUM CARBONATE 300 MG CAPSULE PO ONE (17:00)
[2016-10-30] MEDS ORDERED: VALPROIC ACID 250 MG CAPSULE PO ONE (17:00)
== END 2016-10-30 17:49 | disposition home or self-care (01) ==
LOC: ED 17:43
DX: F32.9 Major depressive disorder, single episode, unspecified (principal); E11.9 Type 2 diabetes mellitus without complications; I10 Essential (primary) hypertension; Z88.5 Allergy status to narcotic agent; Z91.040 Latex allergy status
CPT/HCPCS: 36415; 80047; 93005; 99285

== ENCOUNTER → 2016-10-30 | Outpatient (CLI) | payer MEDICARE, MEDICAID ==
[~2016-10-30] MED LIST changes: -ARIP10TA13 PO; +ARIP10TA33 PO; +DOCU-131 PO; -DOCU-30 PO; +NITR0.4T28 SL; -NITR0.4T8 SL; -ONDA-39 PO; +ONDA4TAB12 PO
[2016-10-30 11:30] LABS: HEMATOCRIT 45.8 % (39.2-51.8); HEMOGLOBIN 14.8 g/dL (13.7-18.0); WHITE BLOOD COUNT 12.1 x10^3/uL (3.4-10)
[2016-10-30 11:34] LABS: BLOOD UREA NITROGEN 20 mg/dL (7-18)
[2016-10-30 11:38] LABS: ASPARTATE AMINO TRANSFERASE 8 U/L (15-37)
== END | disposition home or self-care (01) ==
LOC: LAB 11:05
PROVIDERS: ATTEND Nurse Practitioner
DX: E78.5 Hyperlipidemia, unspecified (principal); E11.29 Type 2 diabetes mellitus with other diabetic kidney complication; E88.41 MELAS syndrome; I10 Essential (primary) hypertension; Z93.3 Colostomy status
CPT/HCPCS: 36415; 80053; 80061; 83036; 85025

== ENCOUNTER 2016-11-09 18:16 | Emergency (ER) | payer MEDICARE, MEDICAID ==
[~2016-11-09] VITALS: Ht 185.4 cm; Wt 100.0 kg
[2016-11-09] MEDS ORDERED: SODIUM CHLORIDE 0.9% 1,000ML IVBOLUS ONE (19:00)
[2016-11-09] MEDS ORDERED: SODIUM CHLORIDE FLUSH 10ML SYR IVF ONE (19:00)
[2016-11-09 19:14] LABS: HEMATOCRIT 43.6 % (39.2-51.8); HEMOGLOBIN 14.1 g/dL (13.7-18.0)
[2016-11-09 19:23] LABS: ASPARTATE AMINO TRANSFERASE 8 U/L (15-37); BLOOD UREA NITROGEN 22 mg/dL (7-18)
[2016-11-09 21:05] VITALS: BP 151/83
== END 2016-11-09 21:12 | disposition home or self-care (01) ==
LOC: ED 19:26
DX: R10.30 Lower abdominal pain, unspecified (principal); G89.29 Other chronic pain; I10 Essential (primary) hypertension; E11.9 Type 2 diabetes mellitus without complications; E78.00 Pure hypercholesterolemia, unspecified; I25.10 Atherosclerotic heart disease of native coronary artery without angina pectoris; Z90.49 Acquired absence of other specified parts of digestive tract; Z88.6 Allergy status to analgesic agent; Z88.5 Allergy status to narcotic agent; Z91.040 Latex allergy status
CPT/HCPCS: 36415; 74022; 74177; 80053; 83690; 85025; 96360; 96361; 99285; J7030

== ENCOUNTER → 2016-11-19 | Outpatient (CLI) | payer MEDICARE, MEDICAID | END | disposition home or self-care (01) | LOC: CFH 13:52 | PROVIDERS: ATTEND Nurse Practitioner | DX: R91.1 Solitary pulmonary nodule (principal) | CPT/HCPCS: 71250 ==

== ENCOUNTER 2016-12-05 05:58 | Emergency (ER) | payer MEDICARE, MEDICAID ==
[~2016-12-05] VITALS: Ht 185.4 cm; Wt 100.0 kg
[2016-12-05] MEDS ORDERED: SODIUM CHLORIDE 0.9% 1,000ML IVBOLUS ONE (06:30)
[2016-12-05] MEDS ORDERED: SODIUM CHLORIDE FLUSH 10ML SYR IVF ONE (06:30)
[2016-12-05 07:21] LABS: HEMATOCRIT 43.7 % (39.2-51.8); HEMOGLOBIN 14.7 g/dL (13.7-18.0); WHITE BLOOD COUNT 13.6 x10^3/uL (3.4-10)
[2016-12-05 07:33] LABS: BLOOD UREA NITROGEN 19 mg/dL (7-18)
[2016-12-05 07:35] LABS: ASPARTATE AMINO TRANSFERASE 16 U/L (15-37)
[2016-12-05] MEDS ORDERED: CEFTRIAXONE PMX 1GM/50ML 50 ML ONE (08:44)
[2016-12-05] MEDS ORDERED: CEFTRIAXONE PMX 1GM/50ML 50 ML IV ONE (09:00)
[2016-12-05 10:16] VITALS: BP 134/65
== END 2016-12-05 11:04 | disposition home or self-care (01) ==
LOC: ED 07:10
DX: E86.0 Dehydration (principal); R10.84 Generalized abdominal pain
CPT/HCPCS: 36415; 74020; 74177; 80053; 81001; 83690; 85025; 87086; 96361; 96365; 99285; J0696; J7030

== ENCOUNTER 2016-12-10 17:13 | Emergency (ER) | payer MEDICARE, MEDICAID ==
[~2016-12-10] VITALS: Ht 185.4 cm; Wt 95.0 kg
[2016-12-10 18:43] LABS: ASPARTATE AMINO TRANSFERASE 10 U/L (15-37); BLOOD UREA NITROGEN 21 mg/dL (7-18)
[2016-12-10 18:46] LABS: HEMATOCRIT 43.1 % (39.2-51.8); WHITE BLOOD COUNT 12.5 x10^3/uL (3.4-10)
[2016-12-10 20:24] VITALS: BP 124/68
== END 2016-12-10 20:28 | disposition home or self-care (01) ==
LOC: ED 17:47
DX: R10.31 Right lower quadrant pain (principal); R10.32 Left lower quadrant pain; R10.30 Lower abdominal pain, unspecified; E11.9 Type 2 diabetes mellitus without complications; I10 Essential (primary) hypertension; E78.00 Pure hypercholesterolemia, unspecified; I25.2 Old myocardial infarction; Z88.6 Allergy status to analgesic agent; Z88.5 Allergy status to narcotic agent; Z88.8 Allergy status to other drugs, medicaments and biological substances; Z90.49 Acquired absence of other specified parts of digestive tract
CPT/HCPCS: 36415; 80053; 83690; 85025; 93005; 99285

== ENCOUNTER → 2016-12-15 | Outpatient (CLI) | payer MEDICARE, MEDICAID ==
[2016-12-18 12:06] LABS: ALKALINE PHOSPHATASE TOTAL 141 IU/L (39-117); BONE FRACTION 37 % (12-68); INTESTINAL FRACTION 0 % (0-18); LIVER FRACTION 63 % (13-88)
== END | disposition home or self-care (01) ==
LOC: LAB 10:48
PROVIDERS: ATTEND Internal Medicine Gastroenterology
DX: K76.0 Fatty (change of) liver, not elsewhere classified (principal); K22.4 Dyskinesia of esophagus; R19.09 Other intra-abdominal and pelvic swelling, mass and lump; F31.9 Bipolar disorder, unspecified; Z93.3 Colostomy status
CPT/HCPCS: 36415; 84075; 84080

== ENCOUNTER 2016-12-27 17:46 | Emergency (ER) | payer MEDICARE, MEDICAID ==
[~2016-12-27] VITALS: Ht 185.4 cm; Wt 99.5 kg
[2016-12-27] MEDS ORDERED: CIPR250T2 PO (18:01)
[2016-12-27] MEDS ORDERED: NITR0.4T28 SL (18:01)
[2016-12-27] MEDS ORDERED: ALBU8.5H8 INH (18:01)
[2016-12-27] MEDS ORDERED: PROMETHAZINE 25 MG/ML, 1ML IM ONE (19:00)
[2016-12-27] MEDS ORDERED: HYDROcodone/APAP 5/325 TABLET PO ONE (19:00)
[2016-12-27] MEDS ORDERED: PROMETHAZINE 25 MG/ML, 1ML ONE (19:20)
[2016-12-27] MEDS ORDERED: HYDROcodone/APAP 5/325 TABLET ONE (19:21)
[2016-12-27 19:25] VITALS: BP 134/81
== END 2016-12-27 19:36 | disposition home or self-care (01) ==
LOC: ED 18:04
DX: R51 Headache (principal); R11.0 Nausea; R10.9 Unspecified abdominal pain; I10 Essential (primary) hypertension; E11.9 Type 2 diabetes mellitus without complications; E78.00 Pure hypercholesterolemia, unspecified; Z90.49 Acquired absence of other specified parts of digestive tract; F17.200 Nicotine dependence, unspecified, uncomplicated
CPT/HCPCS: 96372; 99283; J2550